=== PATIENT | female | born 1980 | race Caucasian/White ===

== ENCOUNTER → 2016-11-11 | Outpatient (CLI) | payer BC ==
[~2016-11-11] MED LIST: ADVAIR 100/28 DISKUS IH; ALBUTEROL0.09 MG/A1 IH; ALLEGRA ALLERG180 MG PO; ATIVAN 1MG T1 MG/TAB PO; COMBIVENT INH14.7 GM IH; EFFEXOR 75M75 MG/TAB PO; EFFEXOR XR75 MG/CAP PO; GEODON80 MG PO; LAMICTAL 100MG100 MG PO; LORATADINE10 MG PO; MVI; NO HOME MEDICATIONS; PRENATAL VITAMI1 TAB PO; PROLIX5TA; PROZAC 10MG10 MG PO; PROZAC40 MG PO; SINGULAIR 110 MG/TAB PO; TRILEPTAL 150M150 MG PO; TRILEPTAL 300M300 MG PO; VIT D; ZYRTEC 10MG10 MG PO; ZYRTEC5 MG PO
== END ==
LOC: BHSO 14:57
DX: F31.81 Bipolar II disorder (principal)

== ENCOUNTER → 2016-12-02 | Outpatient (CLI) | payer BC | LOC: BHSO 09:56 | DX: F31.81 Bipolar II disorder (principal) ==

== ENCOUNTER → 2016-12-25 | Outpatient (CLI) | payer BC | LOC: BHSO 13:50 | DX: F31.12 Bipolar disorder, current episode manic without psychotic features, moderate (principal) ==

== ENCOUNTER → 2016-12-30 | Outpatient (CLI) | payer BC | LOC: BHSO 10:00 | DX: F31.81 Bipolar II disorder (principal) ==

== ENCOUNTER → 2017-01-28 | Outpatient (CLI) | payer BC | LOC: BHSO 11:18 | DX: F31.81 Bipolar II disorder (principal) ==

== ENCOUNTER → 2017-02-12 | Outpatient (CLI) | payer BC | LOC: BHSO 14:11 | DX: F31.13 Bipolar disorder, current episode manic without psychotic features, severe (principal) ==

== ENCOUNTER → 2017-02-25 | Outpatient (CLI) | payer BC | LOC: BHSO 10:14 | DX: F31.81 Bipolar II disorder (principal) ==

== ENCOUNTER → 2017-04-04 | Outpatient (CLI) | payer BC | LOC: BHSO 13:21 | DX: F31.81 Bipolar II disorder (principal) ==

== ENCOUNTER → 2017-05-26 | Outpatient (CLI) | payer BC | LOC: BHSO 15:27 | DX: F31.74 Bipolar disorder, in full remission, most recent episode manic (principal) ==

== ENCOUNTER 2017-10-07 15:06 | Emergency (ER) | payer SELFPAY ==
[~2017-10-07] VITALS: Ht 167.6 cm; Wt 82.3 kg
[2017-10-07 15:16] VITALS: BP 113/69; TEMP 99
[2017-10-07 16:27] LABS: BASO # 0.1 (0.0-0.2); BASO % 0.7 % (0.0-2.0); EOS # 0.1 (0.0-0.7); EOS % 1.2 % (0-4.0); GRAN # 5.5 (1.4-6.5); GRAN % 62.7 % (42.2-75.2); HEMATOCRIT 44.4 % (37.0-47.0); HEMOGLOBIN 15.1 g/dl (12.5-16.0); LYMPH # 2.3 (1.2-3.4); LYMPH % 26.2 % (20.0-51.0); MEAN CELL VOLUME 92 fl (80.0-100.0); MEAN CORPUSCULAR HEMOGLOBIN 31 pg (27.0-31.0); MEAN CORPUSCULAR HGB CONC 34 g/dl (33.0-37.0); MEAN PLATELET VOLUME 9.3 fl (7.4-10.4); MONO # 0.8 (0.1-0.6); MONO % 8.9 % (1.7-9.3); PLATELET COUNT 306 K/mm3 (130-400); RED BLOOD COUNT 4.82 M/mm3 (4.10-5.30); WHITE BLOOD COUNT 8.7 K/mm3 (4.8-10.8)
[2017-10-07 16:34] LABS: ADJUSTED CALCIUM 8.7 mg/dL (8.4-10.2); ALANINE AMINOTRANSFERASE 24 U/L (9-52); ALBUMIN 4.7 gm/dL (3.5-5.0); ALKALINE PHOSPHATASE 60 U/L (50-136); ANION GAP 9 mmol/L (7-16); BILIRUBIN,TOTAL 0.6 mg/dL (0.0-1.0); BLOOD UREA NITROGEN 11 mg/dL (7-17); CALCIUM 9.3 mg/dL (8.4-10.2); CARBON DIOXIDE 25 mmol/L (22-30); CHLORIDE 103 mmol/L (98-107); CREATININE, serum 0.75 mg/dL (0.52-1.25); GLUCOSE 91 mg/dL (74-106); LIPASE 48 U/L (23-300); POTASSIUM 4.1 mmol/L (3.4-5.0); SODIUM 137 mmol/L (137-145); TOTAL PROTEIN 7.9 gm/dL (6.4-8.2)
[2017-10-07 16:38] LABS: C-REACTIVE PROTEIN < 0.5 mg/dL (0.0-0.9)
[2017-10-07] MEDS ORDERED: CARAFATE 1GM1 G PO (16:48)
[2017-10-07] MEDS ORDERED: PROTONIX 40MG T40 MG PO (16:48)
[2017-10-07 16:56] VITALS: PULSE 67
== END 2017-10-07 16:57 | disposition home or self-care (01) ==
LOC: COL.ER 15:06
PROVIDERS: Emergency Medicine
DX: R10.10 Upper abdominal pain, unspecified (principal); R14.0 Abdominal distension (gaseous); J45.909 Unspecified asthma, uncomplicated; F17.210 Nicotine dependence, cigarettes, uncomplicated

== ENCOUNTER 2018-09-02 20:02 | Emergency (ER) | payer SELFPAY ==
[~2018-09-02] VITALS: Ht 167.6 cm; Wt 85.9 kg
[~2018-09-02 20:02] MED LIST changes: +CARAFATE 1GM1 G PO; +PROTONIX 40MG T40 MG PO
[2018-09-02] MEDS ORDERED: PROZAC 10MG10 MG PO (20:42)
[2018-09-02] MEDS ORDERED: SINGULAIR 110 MG/TAB PO (20:42)
[2018-09-02] MEDS ORDERED: ZYRTEC5 MG PO (20:43)
[2018-09-02 20:47] LABS: COLLECTION METHOD CLEAN CATCH
[2018-09-02 20:56] LABS: PH 6 (5-8); SQUAMOUS EPITHELIAL None Seen /hpf; URINE APPEARANCE Clear; URINE BACTERIA None Seen /hpf; URINE BILIRUBIN Negative (NEGATIVE); URINE BLOOD 1+ (NEGATIVE); URINE COLOR Straw; URINE GLUCOSE Negative (NEGATIVE); URINE KETONE Negative (NEGATIVE); URINE LEUKOCYTE ESTERASE Negative (NEGATIVE); URINE NITRATE Negative (NEGATIVE); URINE PROTEIN(semi-quant) Negative (NEGATIVE); URINE RBC 0-2 /hpf; URINE UROBILINOGEN Negative (NEGATIVE)
[2018-09-02] MEDS ORDERED: MOBIC 7.5MG7.5 MG PO (21:43)
[2018-09-02 21:55] VITALS: BP 135/69; PULSE 80; TEMP 98.3
== END 2018-09-02 21:55 | disposition home or self-care (01) ==
LOC: COL.ER 20:02
PROVIDERS: Emergency Medicine
DX: M54.5 Low back pain (principal); M54.6 Pain in thoracic spine
CPT/HCPCS: J1885

== ENCOUNTER 2019-03-08 16:56 | Emergency (ER) | payer SELFPAY ==
[~2019-03-08] VITALS: Ht 167.6 cm; Wt 82.7 kg
[~2019-03-08 16:56] MED LIST changes: +MOBIC 7.5MG7.5 MG PO
[2019-03-08 17:03] VITALS: TEMP 97.8
[2019-03-08 17:28] LABS: BASO # 0.1 (0.0-0.2); BASO % 0.4 % (0.0-2.0); EOS # 0.2 (0.0-0.7); EOS % 1.4 % (0-4.0); GRAN # 10.7 (1.4-6.5); GRAN % 68.8 % (42.2-75.2); HEMATOCRIT 39.6 % (37.0-47.0); HEMOGLOBIN 13.1 g/dl (12.5-16.0); LYMPH # 3.4 (1.2-3.4); LYMPH % 21.7 % (20.0-51.0); MEAN CELL VOLUME 95 fl (80.0-100.0); MEAN CORPUSCULAR HEMOGLOBIN 32 pg (27.0-31.0); MEAN CORPUSCULAR HGB CONC 33 g/dl (33.0-37.0); MEAN PLATELET VOLUME 9.4 fl (7.4-10.4); MONO # 1.2 (0.1-0.6); MONO % 7.4 % (1.7-9.3); PLATELET COUNT 342 K/mm3 (130-400); RED BLOOD COUNT 4.15 M/mm3 (4.10-5.30); REDCELL DISTRIBUTION WIDTH-CV 13.2 % (11.5-14.5)
[2019-03-08 17:40] LABS: ALANINE AMINOTRANSFERASE 49 U/L (9-52); ALBUMIN 4.3 gm/dL (3.5-5.0); ALKALINE PHOSPHATASE 53 U/L (50-136); ANION GAP 7 mmol/L (7-16); AST,SGOT 40 U/L (15-37); BILIRUBIN,TOTAL 0.3 mg/dL (0.0-1.0); BLOOD UREA NITROGEN 11 mg/dL (7-17); C-REACTIVE PROTEIN 0.7 mg/dL (0.0-0.9); CARBON DIOXIDE 24 mmol/L (22-30); CHLORIDE 107 mmol/L (98-107); CREATININE, serum 0.74 (0.52-1.25); GLUCOSE 67 mg/dL (74-106); LIPASE 94 U/L (23-300); POTASSIUM 3.7 mmol/L (3.4-5.0); SODIUM 138 mmol/L (137-145); TOTAL PROTEIN 7.8 gm/dL (6.4-8.2)
[2019-03-08 17:50] LABS: TROPONIN-I < 0.012 ng/mL (0.000-0.035)
[2019-03-08 18:06] LABS: COLLECTION METHOD CLEAN CATCH
[2019-03-08 18:22] LABS: PH 7 (5-8); SQUAMOUS EPITHELIAL 0-2 /hpf; URINE APPEARANCE Clear; URINE BACTERIA None Seen /hpf; URINE BILIRUBIN Negative (NEGATIVE); URINE BLOOD Negative (NEGATIVE); URINE COLOR Yellow; URINE GLUCOSE Negative (NEGATIVE); URINE KETONE Negative (NEGATIVE); URINE LEUKOCYTE ESTERASE Negative (NEGATIVE); URINE NITRATE Negative (NEGATIVE); URINE PROTEIN(semi-quant) Negative (NEGATIVE); URINE UROBILINOGEN Negative (NEGATIVE); URINE WBC 0-2 /hpf
[2019-03-08] MEDS ORDERED: FLEXERIL 1010 MG/TAB PO (20:43)
[2019-03-08 20:44] VITALS: BP 124/82; PULSE 72
== END 2019-03-08 20:46 | disposition home or self-care (01) ==
LOC: COL.ER 16:56
PROVIDERS: Emergency Medicine
DX: R07.89 Other chest pain (principal); R06.4 Hyperventilation; F17.210 Nicotine dependence, cigarettes, uncomplicated; G89.29 Other chronic pain
CPT/HCPCS: J2060; J7030

== ENCOUNTER → 2022-01-28 | Outpatient (CLI) | payer OTHER ==
[~2022-01-28] MED LIST changes: +CLARITIN 1010 MG/TAB PO; +FLEXERIL 1010 MG/TAB PO; +ULTRAM 50MG TAB50 MG PO
== END ==
LOC: COL.RAD 14:18
DX: J01.31 Acute recurrent sphenoidal sinusitis (principal)

== ENCOUNTER 2022-05-06 19:37 | Emergency (ER) | payer OTHER ==
[~2022-05-06] VITALS: Ht 167.6 cm; Wt 81.8 kg
[2022-05-06 19:56] VITALS: TEMP 98.5
[2022-05-06 20:33] LABS: BASO % 0.5 % (0.0-2.0); EOS # 0.1 K/mm3 (0.0-0.7); EOS % 1.4 % (0.0-4.0); GRAN # 4.6 K/mm3 (1.4-6.5); GRAN % 54.7 % (42.2-75.2); HEMOGLOBIN 12.3 g/dl (12.5-16.0); LYMPH # 2.7 K/mm3 (1.2-3.4); LYMPH % 32.5 % (20.0-51.0); MEAN CELL VOLUME 88 fl (80.0-100.0); MEAN CORPUSCULAR HEMOGLOBIN 31 pg (27-31); MEAN CORPUSCULAR HGB CONC 35 g/dl (33.0-37.0); MEAN PLATELET VOLUME 8.9 fl (7.4-10.4); MONO # 0.9 K/mm3 (0.1-0.6); MONO % 10.7 % (1.7-9.3); PLATELET COUNT 303 K/mm3 (130-400); RED BLOOD COUNT 4.01 M/mm3 (4.10-5.30); REDCELL DISTRIBUTION WIDTH-CV 12.2 % (11.5-14.5)
[2022-05-06 20:34] LABS: HEMATOCRIT 35.2 % (37.0-47.0)
[2022-05-06 20:58] LABS: ALBUMIN 4.3 gm/dL (3.5-5.0); BILIRUBIN,TOTAL 0.5 mg/dL (0.2-1.2); CALCIUM 8.8 mg/dL (8.4-10.2); CREATININE, serum 0.79 mg/dL (0.57-1.11); POTASSIUM 3.2 mmol/L (3.5-4.5); TOTAL PROTEIN 7.6 gm/dL (6.2-8.1)
[2022-05-06 21:21] VITALS: BP 137/86; PULSE 87
== END 2022-05-06 21:22 | disposition home or self-care (01) ==
LOC: COL.ER 19:37
PROVIDERS: Personal Emergency Response Attendant
DX: R55 Syncope and collapse (principal); Z28.310 Unvaccinated for COVID-19

== ENCOUNTER 2022-05-24 14:34 | Emergency (ER) | payer SELFPAY ==
[~2022-05-24] VITALS: Ht 165.1 cm; Wt 81.8 kg
[2022-05-24 14:50] VITALS: BP 125/76; PULSE 93; TEMP 98.3
== END 2022-05-24 19:27 | disposition home or self-care (01) ==
LOC: COL.ER 14:34
DX: S20.211A Contusion of right front wall of thorax, initial encounter (principal); S63.501A Unspecified sprain of right wrist, initial encounter; Z87.09 Personal history of other diseases of the respiratory system; Y04.8XXA Assault by other bodily force, initial encounter
CPT/HCPCS: A9284

== ENCOUNTER 2023-11-14 18:20 | Emergency (ER) | payer OTHER ==
[~2023-11-14] VITALS: Ht 167.6 cm; Wt 81.8 kg
[2023-11-14 18:25] VITALS: TEMP 98
[2023-11-14] MEDS ORDERED: OCUFLOX OPHTH DR5 ML OD (18:45)
[2023-11-14] MEDS ORDERED: DOXYCYCLINE 10100 MG PO (18:45)
[2023-11-14 18:59] LABS: COLLECTION METHOD CLEAN CATCH
[2023-11-14 19:13] LABS: URINE APPEARANCE Clear (CLEAR/HAZY); URINE COLOR Yellow (YELLOW)
[2023-11-14 19:14] LABS: URINE BLOOD TRACE-INTACT (NEGATIVE); URINE GLUCOSE Negative (NEGATIVE); URINE KETONE Negative (NEGATIVE); URINE NITRATE Negative (NEGATIVE); URINE PROTEIN(semi-quant) Negative (NEGATIVE); URINE UROBILINOGEN 0.2 E.U/dL (0.2-1.0)
[2023-11-14 19:25] LABS: URINE BACTERIA Moderate /hpf (NONE SEEN)
[2023-11-14] MEDS ORDERED: CEPHALEXIN500 M1 PO (19:27)
[2023-11-14] MEDS ORDERED: DIFLUCAN150 MG PO (19:30)
[2023-11-14 19:37] VITALS: BP 115/48; PULSE 91
== END 2023-11-14 19:37 | disposition home or self-care (01) ==
LOC: COL.ER 18:20
PROVIDERS: Physician Assistant
DX: H00.012 Hordeolum externum right lower eyelid (principal); N39.0 Urinary tract infection, site not specified; Z87.891 Personal history of nicotine dependence